=== PATIENT | female | born 1975 ===

== ENCOUNTER → 2022-10-15 10:00 | Outpatient (BNVA) | payer MEDICAID, SELFPAY | PROVIDERS: Family Provider Family Medicine; PCP Family Medicine; Referring Provider Registered Nurse; Visit Provider Specialist | DX: M17.0 Bilateral primary osteoarthritis of knee (principal) | CPT/HCPCS: 73560; 73565 ==

== ENCOUNTER 2022-10-15 14:18 | Outpatient (CLI) | payer MEDICAID, SELFPAY | END 2022-10-15 14:19 | disposition home or self-care (01) | LOC: SPT 14:19 | PROVIDERS: Family Provider Family Medicine; PCP Family Medicine; Visit Provider Specialist | DX: Z46.89 Encounter for fitting and adjustment of other specified devices (principal); M25.562 Pain in left knee; M17.0 Bilateral primary osteoarthritis of knee | CPT/HCPCS: 97760; L1851 ==

== ENCOUNTER 2025-01-29 11:51 | Emergency (ER) | payer MEDICAID, SELFPAY ==
[2025-01-29 12:04] VITALS: BP 154/102; PULSE 75; RESP 16; TEMP 36.7; O2SAT 98; BMI 42.2
--- NOTE | 2025-01-29 12:16 | W.ED.HA ---
HPI - Headache General: Chief Complaint: Headache Stated Complaint: migraine Time Seen by Provider: 01/29/25 12:11 History of Present Illness: 49-year-old female with a history of migraines presents with migrainous headache that began last night its on the left side of her head frontal she has had these. In the past usually not quite as intense as if she has had migraines in the past that caused visual changes she is having 1 again now. She has no other focal symptoms she has taken Tylenol and ibuprofen with no relief. 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 #1 ea 10/15/22 promethazine 25 mg tablet 25 mg PO Q6H PRN nausea and 01/29/25 vomiting #20 tabs Allergies Allergy/AdvReac Type Severity Reaction Status Date / Time loratadine (From Claritin) Allergy Unknown Verified 01/29/25 12:08 Review of Systems Const: Denies: fever(s) or chills Card: Denies: chest pain Resp: Denies: dyspnea GI: Denies: abdominal pain : Denies: dysuria, urinary frequency or urinary urgency Musc: Denies: neck pain or back pain Skin/Breast: Denies: rash Neuro: Reports: headache(s) Physical Exam Const: GENERAL APPEARANCE: cooperative ORIENTATION/CONSCIOUSNESS: Yes awake, Yes oriented to person, Yes oriented to place and Yes oriented to time HENMT: COMMON NORMALS: normocephalic, atraumatic and hearing grossly normal bilaterally HEAD & SCALP: normocephalic and atraumatic Resp: COMMON NORMALS: normal respiratory effort, No retractions, No use of accessory muscles and clear to auscultation bilaterally AUSCULTATION: clear to auscultation bilaterally Cardio: COMMON NORMALS: regular rate, regular rhythm and No murmurs present (Cardio) RATE: regular rate RHYTHM: regular rhythm GI: COMMON NORMALS: Soft to palpation and No hepatosplenomegaly present AUSCULTATION: Yes normoactive bowel sounds PALPATION: Yes Soft to palpation, No Tenderness to palpation present (GI), No Guarding due to palpation present (GI) and Yes No hepatosplenomegaly present Extremity: COMMON NORMALS: normal to inspection, capillary refill normal, no clubbing, cyanosis or edema, no calf tenderness and no pedal edema Neuro: SENSORIUM/ORIENTATION: Yes oriented to person, Yes oriented to place and Yes oriented to time OTHER: No focal neurologic deficits NIH is 0 Skin: COMMON NORMALS: no rashes or lesions noted GENERAL SKIN EXAM: no rashes or lesions noted Course Vital Signs: Vital signs: Vital Signs Temperature 98.0 F 01/29/25 12:04 Pulse Rate 68 01/29/25 13:55 Respiratory Rate 16 01/29/25 12:04 Blood Pressure 128/90 01/29/25 13:55 Pulse Oximetry 96 01/29/25 13:55 Oxygen Delivery Me thod Room Air 01/29/25 12:04 MDM - Headache Medical Decision Making Migrainous headache relieved with medications given will discharge patient home. Patient given promethazine to use along with Tylenol ibuprofen as needed recommend she follow-up with her primary care doctor for long-term management for migraine prophylaxis. 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 It is very important that you follow up as instructed or that you return to the Emergency Department should you have concerns or if your condition changes or worsens in any way. You were seen in the emergency room with a headache with vision changes. Medications did improve some. You can use [id number] medicines along with the promethazine given, use this as needed if you have recurrent headaches you could also add Benadryl to Tylenol or ibuprofen or use [id number] migraine headache preparations. Recommend you follow-up with your primary care doctor. 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
[2025-01-29] MEDS: diphenhydrAMINE 50 mg/mL SDV 1mL IVP (12:35)
[2025-01-29 13:15] VITALS: BP 178/94; PULSE 62; O2SAT 97
[2025-01-29 13:55] VITALS: BP 128/90; PULSE 68; O2SAT 96
== END 2025-01-29 13:56 | disposition home or self-care (01) ==
PROVIDERS: Emergency Provider Family Medicine; PCP Registered Nurse
DX: G43.109 Migraine with aura, not intractable, without status migrainosus (principal)
CPT/HCPCS: 36415; 96374; 96375; 99284; J0780; J1110; J1200; J1885